=== PATIENT | male | born 1960 | race African-American/Black ===

== ENCOUNTER 2016-04-09 09:04 | Emergency (ER) | payer SELFPAY ==
[~2016-04-09] VITALS: Ht 165.1 cm; Wt 109.1 kg
[~2016-04-09 09:04] MED LIST: BENZ1TAB10 PO; RISP3TAB44 PO
[2016-04-09] MEDS ORDERED: LEVE250T55 PO (09:24)
[2016-04-09] MEDS ORDERED: MOME13HF2 IH (09:24)
[2016-04-09] MEDS ORDERED: LEVAHFA IH (09:24)
[2016-04-09] MEDS ORDERED: SIMV-260 PO (09:24)
[2016-04-09] MEDS ORDERED: AMIT25TA9 PO (09:24)
[2016-04-09] MEDS ORDERED: BUSP10TA23 PO (09:24)
[2016-04-09] MEDS ORDERED: VIST50 PO (09:24)
[2016-04-09] MEDS ORDERED: FLUO-191 PO (09:24)
[2016-04-09 09:27] LABS: GLUCOSE,POINT OF CARE 175 MG/DL (70-110)
[2016-04-09] MEDS ORDERED: ONDANSETRON HCL 4 MG/2 ML VIAL IVP ONE (10:45)
[2016-04-09] MEDS ORDERED: KETOROLAC TROMETHAMINE 30 MG/ML VIAL IVP ONE (10:45)
[2016-04-09] MEDS ORDERED: RISP4 PO (10:49)
[2016-04-09] MEDS ORDERED: LEVE500T53 PO (10:49)
[2016-04-09 11:49] LABS: BASOPHILS % (AUTO) 0.5 % (0.0-2.0); EOSINOPHILS % (AUTO) 0 % (1.0-6.0); HEMOGLOBIN 16.2 g/dL (13.5-17.5); MEAN CORPUSCULAR HEMOGLOBIN 27.5 pg (26.0-34.0); MEAN CORPUSCULAR HGB CONC 32.4 G/dL (31.0-37.0); MEAN CORPUSCULAR VOLUME 85 fL (80-100); MONOCYTES # (AUTO) 1.9 K/uL (0.1-1.0); MONOCYTES % (AUTO) 11.2 % (2.0-9.0); NEUTROPHILS # (AUTO) 12.8 K/uL (1.8-7.7); NEUTROPHILS % (AUTO) 76.3 % (40.0-70.0); PLATELET COUNT (AUTO) 264 K/uL (150-450); RED BLOOD CELL COUNT(AUTO) 5.89 MIL/uL (4.50-5.90); RED CELL DISTRIBUTION WIDTH 14.1 % (11.5-14.5); WHITE BLOOD COUNT (AUTO) 16.8 K/uL (4.5-11.0)
[2016-04-09 12:15] LABS: ANION GAP 11 mmol/L (8-16); CALCIUM, TOTAL 9.4 mg/dL (8.8-10.5); CARBON DIOXIDE 27 mmol/L (22-29); CHLORIDE 98 mmol/L (98-107); CREATININE 1.21 mg/dL (0.60-1.30); GLOMERULAR FILTR. RATE CALC > 60 mL/min (>60); POTASSIUM 4.3 mmol/L (3.5-5.1); SODIUM SERUM 136 mmol/L (136-145); UREA NITROGEN, BLOOD 15 mg/dL (7-18)
[2016-04-09 12:21] LABS: ALANINE AMINOTRANSFERASE 21 U/L (12-78); ALBUMIN 4.2 g/dL (3.4-5.0); BILIRUBIN,TOTAL 0.7 mg/dL (0.1-1.0); TOTAL PROTEIN, SERUM 8.1 g/dL (6.4-8.2)
[2016-04-09 12:33] LABS: ASPARTATE AMINOTRANSFERASE 25 U/L (15-37)
[2016-04-09 13:13] VITALS: BP 120/72
== END 2016-04-09 13:34 | disposition home or self-care (01) ==
LOC: EMS 09:06
DX: K29.70 Gastritis, unspecified, without bleeding (principal); F20.9 Schizophrenia, unspecified; J45.909 Unspecified asthma, uncomplicated; E78.00 Pure hypercholesterolemia, unspecified; F17.210 Nicotine dependence, cigarettes, uncomplicated; Z88.6 Allergy status to analgesic agent
CPT/HCPCS: 36415; 71010; 76700; 80053; 80307; 82962; 83690; 83880; 84484; 85025; 93005; 96374; 96375; 99285; G0480; J1885; J2405

== ENCOUNTER 2019-01-03 11:30 | Emergency (ER) | payer MEDICAID ==
[~2019-01-03] VITALS: Ht 165.1 cm; Wt 79.0 kg
[~2019-01-03 11:30] MED LIST changes: +AMIT25TA9 PO; -BENZ1TAB10 PO; +BUSP10TA23 PO; +FLUO-191 PO; +HYDR50CA9 PO; +LEVAHFA IH; +LEVE500T53 PO; +MOME13HF2 IH; -RISP3TAB44 PO; +RISP4 PO; +SIMV-260 PO
[2019-01-03] MEDS ORDERED: PERTUSS(ACELL),DIPH,TET VAC/PF 0.5 ML VIAL IM ONE (12:45)
[2019-01-03] MEDS ORDERED: POVIDONE-IODINE 10% 15 ML SOLUTION UD TP ONE (12:45)
[2019-01-03] MEDS ORDERED: BACITRACIN 0.9 GM PACKET OINTMENT TP ONE (12:45)
[2019-01-03] MEDS ORDERED: ACETAMINOPHEN 500 MG TABLET PO ONE (12:45)
[2019-01-03] MEDS ORDERED: LIDOCAINE 1% 10 ML VIAL INJ ONE (13:30)
[2019-01-03 14:13] VITALS: BP 116/71
== END 2019-01-03 14:39 | disposition home or self-care (01) ==
LOC: EMS 11:32
DX: S61.512A Laceration without foreign body of left wrist, initial encounter (principal); F41.9 Anxiety disorder, unspecified; F32.9 Major depressive disorder, single episode, unspecified; F20.9 Schizophrenia, unspecified; E78.00 Pure hypercholesterolemia, unspecified; J45.909 Unspecified asthma, uncomplicated; F17.210 Nicotine dependence, cigarettes, uncomplicated; Z88.6 Allergy status to analgesic agent; W26.0XXA Contact with knife, initial encounter; Y93.89 Activity, other specified; Y92.89 Other specified places as the place of occurrence of the external cause; Y99.8 Other external cause status
CPT/HCPCS: 12001; 90471; 90715; 99283; J3490

== ENCOUNTER 2020-08-28 07:47 | Emergency (ER) | payer MEDICAID ==
[~2020-08-28] VITALS: Ht 172.7 cm; Wt 77.3 kg
[~2020-08-28 07:47] MED LIST changes: -AMIT25TA9 PO; -RISP4 PO; +RISP4TAB73 PO; +[UNRECOGNIZED DRUG - CODE] PO
[2020-08-28 08:08] LABS: BASOPHILS % (AUTO) 0.6 % (0.0-2.0); EOSINOPHILS % (AUTO) 0.5 % (1.0-6.0); HEMATOCRIT 46.8 % (41-53); HEMOGLOBIN 15.8 g/dL (13.5-17.5); LYMPHOCYTES # (AUTO) 2.5 K/uL (1.0-4.8); LYMPHOCYTES % (AUTO) 23.1 % (22.0-44.0); MEAN CORPUSCULAR HGB CONC 33.8 G/dL (31.0-37.0); MEAN CORPUSCULAR VOLUME 95 fL (80-100); MONOCYTES # (AUTO) 1.1 K/uL (0.1-1.0); MONOCYTES % (AUTO) 9.7 % (2.0-9.0); NEUTROPHILS # (AUTO) 7.2 K/uL (1.8-7.7); NEUTROPHILS % (AUTO) 66.1 % (40.0-70.0); PLATELET COUNT (AUTO) 271 K/uL (150-450); RED BLOOD CELL COUNT(AUTO) 4.95 MIL/uL (4.50-5.90); RED CELL DISTRIBUTION WIDTH 13.7 % (11.5-14.5)
[2020-08-28 08:14] LABS: ANION GAP 11 mmol/L (8-16); CARBON DIOXIDE 26 mmol/L (22-29); CHLORIDE 103 mmol/L (98-107); GLOMERULAR FILTR. RATE CALC > 60 mL/min (>60); GLUCOSE,RANDOM 77 mg/dL (70-110); POTASSIUM 3.8 mmol/L (3.5-5.1); SODIUM SERUM 140 mmol/L (136-145); UREA NITROGEN, BLOOD 11 mg/dL (7-18)
[2020-08-28 08:20] LABS: ALANINE AMINOTRANSFERASE 20 U/L (12-78); ALBUMIN 3.8 g/dL (3.4-5.0); ALKALINE PHOSPHATASE 89 U/L (46-116); ASPARTATE AMINOTRANSFERASE 23 U/L (15-37); BILIRUBIN,TOTAL 0.5 mg/dL (0.1-1.0)
[2020-08-28 08:24] LABS: COVID AG,FIA SOURCE NASOPHARYNGEAL
[2020-08-28 08:31] LABS: TOTAL PROTEIN, SERUM 6.9 g/dL (6.4-8.2)
[2020-08-28 09:00] VITALS: BP 122/64
[2020-08-28] MEDS ORDERED: LevETIRAcetam 500 MG TABLET PO ONE (09:45)
[2020-08-28] MEDS ORDERED: BusPIRone HCL 10 MG TABLET PO ONE (09:45)
[2020-08-28] MEDS ORDERED: FLUoxetine HCL 20 MG CAPSULE PO ONE (09:45)
== END 2020-08-28 10:12 | disposition home or self-care (01) ==
LOC: EMS 07:49
DX: F32.9 Major depressive disorder, single episode, unspecified (principal); F17.210 Nicotine dependence, cigarettes, uncomplicated; F41.9 Anxiety disorder, unspecified; J45.909 Unspecified asthma, uncomplicated; E78.00 Pure hypercholesterolemia, unspecified; F20.9 Schizophrenia, unspecified; Z20.822 Contact with and (suspected) exposure to COVID-19
CPT/HCPCS: 36415; 80053; 85025; 87426; 99284; G0480

== ENCOUNTER 2020-11-22 08:54 | Emergency (ER) | payer MEDICAID ==
[~2020-11-22] VITALS: Ht 172.7 cm; Wt 72.0 kg
[~2020-11-22 08:54] MED LIST changes: +AMIT25TA10 PO; +LEVE500T20 PO; -LEVE500T53 PO; -[UNRECOGNIZED DRUG - CODE] PO
[2020-11-22] MEDS ORDERED: LORazepam 2 MG/ML VIAL IVP ONE (09:15)
[2020-11-22] MEDS ORDERED: LevETIRAcetam 1,000 MG in DEXTROSE 5%-WATER 100 ML IV ONE (09:15)
[2020-11-22 09:25] LABS: BASOPHILS % (AUTO) 0.4 % (0.0-2.0); EOSINOPHILS % (AUTO) 0.6 % (1.0-6.0); HEMATOCRIT 45.2 % (41-53); HEMOGLOBIN 15.3 g/dL (13.5-17.5); LYMPHOCYTES # (AUTO) 1.8 K/uL (1.0-4.8); LYMPHOCYTES % (AUTO) 16.1 % (22.0-44.0); MEAN CORPUSCULAR HGB CONC 33.8 G/dL (31.0-37.0); MEAN CORPUSCULAR VOLUME 95 fL (80-100); MONOCYTES # (AUTO) 1.1 K/uL (0.1-1.0); MONOCYTES % (AUTO) 9.6 % (2.0-9.0); NEUTROPHILS # (AUTO) 8.4 K/uL (1.8-7.7); NEUTROPHILS % (AUTO) 73.3 % (40.0-70.0); PLATELET COUNT (AUTO) 243 K/uL (150-450); RED BLOOD CELL COUNT(AUTO) 4.78 MIL/uL (4.50-5.90); RED CELL DISTRIBUTION WIDTH 13.9 % (11.5-14.5)
[2020-11-22 09:33] LABS: ANION GAP 8 mmol/L (8-16); CALCIUM, TOTAL 8.9 mg/dL (8.8-10.5); CARBON DIOXIDE 28 mmol/L (22-29); CHLORIDE 104 mmol/L (98-107); CREATININE 0.87 mg/dL (0.60-1.30); GLOMERULAR FILTR. RATE CALC > 60 mL/min (>60); GLUCOSE,RANDOM 103 mg/dL (70-110); POTASSIUM 3.9 mmol/L (3.5-5.1); SODIUM SERUM 140 mmol/L (136-145); UREA NITROGEN, BLOOD 16 mg/dL (7-18)
[2020-11-22 09:39] LABS: ALANINE AMINOTRANSFERASE 18 U/L (12-78); ALBUMIN 3.9 g/dL (3.4-5.0); ALKALINE PHOSPHATASE 71 U/L (46-116); ASPARTATE AMINOTRANSFERASE 21 U/L (15-37); BILIRUBIN,TOTAL 0.4 mg/dL (0.1-1.0); TOTAL PROTEIN, SERUM 7.1 g/dL (6.4-8.2)
[2020-11-22 09:40] LABS: PHENYTOIN (DILANTIN) < 0.5 mcg/mL (10.0-20.0)
[2020-11-22 10:41] VITALS: BP 106/67
== END 2020-11-22 11:41 | disposition home or self-care (01) ==
LOC: EDUNIT# 08:54 → EMS 08:58
DX: G40.909 Epilepsy, unspecified, not intractable, without status epilepticus (principal); F41.9 Anxiety disorder, unspecified; J45.909 Unspecified asthma, uncomplicated; F32.9 Major depressive disorder, single episode, unspecified; E78.00 Pure hypercholesterolemia, unspecified; F20.9 Schizophrenia, unspecified; F17.210 Nicotine dependence, cigarettes, uncomplicated; Z88.6 Allergy status to analgesic agent
CPT/HCPCS: 36415; 80053; 80185; 85025; 93005; 96374; 96375; 99284; G0480; J0712; J2060; J7060